=== PATIENT | female | born 1950 | race Caucasian/White ===

== ENCOUNTER 2016-08-07 16:50 | Emergency (ER) | payer MEDICARE ==
[2016-08-07 17:50] LABS: Urine Bacteria 1+; Urine RBC None Seen /hpf (0-5); Urine WBC 0-5 /hpf (0-5)
--- OUTSIDE RECORDS SUMMARY | 2016-08-07 18:13 | XMS REPORT | Continuity of Care Document ---
:1950 Author Organization [facility] ([facility]) Address [address] [place] [address] Phone [phone] Care Team Providers Name Role Phone GilsonGwendolyn Primary Care Provider [phone] Source Comments This disclosure is being made pursuant to the Care Everywhere program, applicable federal and state laws, and may not contain all informaitonavailable regarding this patient.[facility] ([facility]) Active Allergies and Adverse Reactions Allergen Noted Date Severity Reactions Comments Latex 01/28/2010 Rash Current Medications Prescription Sig. Disp. Refills Start Date End Date Status zolpiDEM 10 mg tablet Take 1 Tab by mouth 30 Tab 1 12/08/2010 Active at bedtime as needed. Indications: Sleep-Onset Insomnia warfarin (COUMADIN) 1 Take by mouth as 200 Tab 1 01/20/2011 Active mg tablet directed Indications: Deep Vein Thrombosis Prevention docusate (COLACE) 100 Take 1 Cap by mouth 60 Cap 3 01/20/2011 Active mg capsule 2 times daily. Indications: Constipation hydrOXYzine pamoate Take 1-2 Caps by 80 Cap 1 01/20/2011 Active (VISTARIL) 25 mg mouth 4 times daily capsule as needed for Other (pain/spasms). Indications: pain/spasms HYDROmorphone Take 1-2 Tabs by 200 Tab 0 01/20/2011 Active (DILAUDID) 2 mg tablet mouth every 4 hours as needed. Indications: Pain bisoprolol-hydrochlorot Take 1 Tab by mouth Active hiazide 2.5-6.25 mg per Every morning. tablet cyanocobalamin (VITAMIN Take 1,000 mcg by Active B-12) 1,000 mcg tablet mouth daily. Indications: Prevention of Vitamin B12 Deficiency cholecalciferol Take 1,000 Units by Active (VITAMIN D) 1,000 unit mouth daily. Tab tablet RUTIN/HESP Take 1 Cap by mouth Active CM/BIOFL/YULI/HC111 daily. (BIOFLEX PO) methotrexate 2.5 mg Take 15 mg by mouth Active tablet every week. Per patient takes on Monday mornings Indications: Non-Hodgkin's Lymphoma, Psoriasis ZINC PO Take 1 Cap by mouth Active daily. topiramate 100 mg Take 100 mg by Active tablet mouth 2 times daily. venlafaxine 37.5 mg XR Take 37.5 mg by Active tablet mouth daily. Cranberry 1,000 mg Cap Take 1 Cap by mouth Active daily. doxycycline hyclate 100 Take 1 Cap by mouth 14 Cap 1 01/22/2011 Active mg capsule 2 times daily. Indications: coverage for L hip (r/o infecton) and UTI ferrous sulfate 325 mg Take 1 Tab by mouth 100 Tab 1 01/22/2011 Active (65 mg iron) tablet 2 times daily. Indications: Iron Deficiency Anemia Active Problems Not on file Social History Tobacco Use Types Packs/Day Years Used Date Never Smoker Smokeless Tobacco: Never Used Alcohol Use Drinks/Week oz/Week Comments No Last Filed Vital Signs Vital Sign Reading Time Taken Blood Pressure 115/62 01/22/2011 8:00 AM CDT Pulse 74 01/22/2011 8:00 AM CDT Temperature 36.5 C (97.7 F) 01/22/2011 8:00 AM CDT Respiratory Rate 18 01/22/2011 12:00 PM CDT Height 1.75 m (5' 8.9") 01/19/2011 8:23 AM CDT Weight 74 kg (163 lb 2.3 oz) 01/19/2011 8:23 AM CDT Body Mass Index 24.16 01/19/2011 8:23 AM CDT Oxygen Saturation 96% 01/22/2011 8:00 AM CDT Plan of Care Health Maintenance Due Date Last Done Comments HCV Screening 1950 Hepatitis B Vaccine (1 of 3 - Primary Series) 1950 Tdap Vaccine 11/19/1963 Lipid Disorder Screening 1970 Td Vaccine 1970 Cervical Cancer Screening 1982 Mammogram 1992 Colonoscopy 2002 Zoster Vaccine 2012 Influenza Vaccine: Seasonal (#1) 10/19/2015 Results from Last 3 Months Not on file
[2016-08-07] MEDS ORDERED: SULFAMETHOXAZOLE/TRIMETHOPRIM 1 TAB TABLET PO ONE (18:50)
[2016-08-07] MEDS ORDERED: PHENAZOPYRIDINE HCL 100 MG TABLET PO ONE (18:50)
[2016-08-07] MEDS ORDERED: PHENAZOPYRIDINE HCL 100 MG TABLET ONE (18:51)
[2016-08-07] MEDS ORDERED: SULFAMETHOXAZOLE/TRIMETHOPRIM 1 TAB TABLET ONE (18:59)
--- NOTE | 2016-08-07 19:02 | ERNOTE ---
ER Female HPI Date of Service: 08/07/16 Stated Complaint: KIDNEY INFECTION? Presenting Symptoms: dysuria Time Seen by Provider: 08/07/16 17:55 Source: patient Exam Limitations: no limitations Immunizations: IMMUNIZATION HX History of Influenza Vaccine Yes Hx Pneumococcal Vaccination Yes Allergies/Adverse Reactions: Allergies latex Adverse Reaction (Verified 08/07/16 17:15) Home Medications: HOME MEDICATIONS Venlafaxine HCl [Effexor Xr] 37.5 mg PO DAILY 03/31/13 [Last Taken 03/26/14] Topiramate [Topamax] 200 mg PO DAILY 03/26/14 [Last Taken 03/26/14] Bisoprol/Hydrochlorothiazide [Bisoprolol-Hctz 5-6.25 mg Tab] 1 each PO DAILY [Last Taken Unknown] Phenazopyridine HCl [Pyridium] 200 mg PO TID #9 tablet 08/07/16 [Last Taken Unknown] Sulfamethoxazole/Trimethoprim [Bactrim Ds] 1 tab PO BID #6 tablet 08/07/16 [ Last Taken Unknown] Pain Score #1 Pain Score: 7 - History of Present Illness Narrative: Patient is a 65 year old female patient who presents to the ED with complaints of lower abdominal pain x 2 weeks. Patient states she has had constant cramping like pain in lower abdomen x 2 weeks. States "it felt like a bladder infection, like the ones I used to get years ago". Patient states she started OTC pyridium yet now complains of worsening pain now radiating into right flank area since this afternoon. Denies fever, NVD. Complains of urinary frequency and painful urination yet denies anuria or hematuria. Date (Duration): 07/23/16 Timing: Present: constant, getting worse Quality: Present: moderate Onset Location: Present: suprapubic Radiation: Present: right flank Activities at Onset: Present: none Prior Abdominal Problems: Present: similar symptoms - approximately 7 years ago Modifying Factors - (Improves): Present: other - attempted OTC Pyridium without relief Modifying Factors - (Worsens): Present: urinating Associated Symptoms: Present: abdominal pain, dysuria Review of Systems - Review of Systems Constitutional: Present: no symptoms reported. Absent: recent illness, fever, chills, weight loss EYE: Present: no symptoms reported ENT: Present: no symptoms reported Respiratory: Present: no symptoms reported. Absent: shortness of breath, cough Cardiology: Present: no symptoms reported. Absent: palpitations, syncope Gastrointestinal/Abdominal: Present: abdominal pain - suprapubic pain. Absent: nausea, vomiting, diarrhea, eating less, drinking less Genitourinary: Present: frequency, dysuria, decreased urinary output. Absent: hematuria, discharge Musculoskeletal: Present: back pain - right flank area Skin: Present: no symptoms reported Neurological: Present: no symptoms reported Endocrine: Present: no symptoms reported Hematologic/Lymphatic: Present: no symptoms reported Psych: Present: no symptoms reported - Patient's Past Medical History Patient History - Medical: UTI'S, Other Patient History - Cardiac/Respiratory: Hypertension, Hyperlipidemia Patient History - Cancer: No Hx of Cancer Patient History - Surgical Procedures: Cholecystectomy, Hysterectomy, Total Hip Replacement, Tubal Ligation, Other Patient History - Other: None - Social History Living Situations: home Abuse History: No History of abuse Psych History: No pertinent hx Does anyone smoke in the home?: No Smoking Status: Never smoker Alcohol Use: none Drug Use: none - Immunizations Hx Pneumococcal Vaccination: Yes History of Influenza Vaccine: Yes Physical Exam - Physical Exam General Appearance: Present: wd/wn, alert, no apparent distress Eye Exam: Normal inspection: bilateral, PERRL: bilateral Ears, Nose, Throat: Present: normal pharynx. Absent: dry mucous membranes Neck: Present: normal inspection, nontender, supple, full range of motion. Absent: lymphadenopathy (R), lymphadenopathy (L) Respiratory: Present: no respiratory distress, normal breath sounds, no accessory muscle use, chest nontender, lungs clear. Absent: chest tenderness, accessory muscle use Cardiovascular/Chest: Present: regular rate, rhythm, no murmur, normal peripheral pulses Peripheral Pulses: N=norm/S=strong/W=weak/B=bound/A=absent: Radial (R): Normal, Radial (L): Normal Gastrointestinal/Abdominal: Present: normal bowel sounds, nondistended, soft, no organomegaly, tenderness - suprapubic pain Rectal Exam: Present: deferred Back Exam: Present: normal inspection, normal range of motion, no CVA tenderness , no vertebral tenderness Extremity Exam: Present: normal inspection, non-tender, normal range of motion, no edema Neurological Exam: Present: alert, oriented, normal mood/affect, no motor/ sensory deficits Skin Exam: Present: normal color, warm/dry Lymphatic Exam: Present: no adenopathy ED Progress - Results and Orders Patient's Lab Results:: I have reviewed the patient's lab results. - Vital Signs Patient's Vital Signs:: I have reviewed the patient's vital signs. Vital Signs: Vital Signs 08/07/16 17:10 Temperature 37.3 C Pulse Rate 70 Respiratory 16 Rate Blood Pressure 148/63 O2 Sat by Pulse 99 Oximetry - Progress/Reassessment Chief Complaint: Genitourinary Problem Progress:: Unchanged Progress Note-Subjective: 08/07/16 18:57 Explained lab findings and patient wishes to proceed with treatment plan. Verbalized understanding in regards to returning if pain to right flank worsens or NVD chills and fever occurs despite antibiotic treatment. Patient verbalized understanding Departure Clinical Impression: UTI (urinary tract infection) Qualifiers: Urinary tract infection type: acute cystitis Hematuria presence: without hematuria Qualified Code(s): N30.00 - Acute cystitis without hematuria - Departure Disposition: Home self-care Condition: Fair Instructions: Urinary Tract Infection, Adult, [id number] Additional Instructions: Push fluids, antibiotics as directed. Return if abdominal or flank pain worsens or fever/chills/nausea/vomiting occur. Prescriptions: Phenazopyridine HCl [Pyridium] 200 mg PO TID #9 tablet Sulfamethoxazole/Trimethoprim [Bactrim Ds] 1 tab PO BID #6 tablet
[2016-08-07 19:10] VITALS: BP 139/72
== END 2016-08-07 19:05 | disposition home or self-care (01) ==
LOC: ER 16:50
DX: N30.00 Acute cystitis without hematuria (principal); I10 Essential (primary) hypertension; E78.5 Hyperlipidemia, unspecified; Z87.440 Personal history of urinary (tract) infections